=== PATIENT | female | born 1980 | race Caucasian/White ===

== ENCOUNTER 2020-02-08 12:23 | Observation (INO) | payer BC, OTHER ==
[~2020-02-08] VITALS: Ht 177 cm; Wt 115.7 kg
[2020-02-08] MEDS ORDERED: NS IV 1000 ML 1,000 ML IV SCH (12:35)
[2020-02-08] MEDS ORDERED: ONDANSETRON 4 MG/2 ML (SDV) Z0FRAN ONE (12:51)
[2020-02-08 12:56] LABS: BASOPHILS % (AUTO) 0 % (0-10); EOSINOPHILS # (AUTO) 0.2 10^3/uL (0.0-0.3); EOSINOPHILS % (AUTO) 3 % (0-10); HEMATOCRIT 43 % (35-52); HEMOGLOBIN 14.7 G/DL (11.5-16.0); LYMPHOCYTES # (AUTO) 2.6 X 10^3 (1.0-4.0); LYMPHOCYTES % (AUTO) 45 % (12-44); MEAN CORPUSCULAR HEMOGLOBIN 29 PG (25-34); MEAN CORPUSCULAR HGB CONC 34 G/DL (32-36); MEAN CORPUSCULAR VOLUME 86 FL (80-99); MEAN PLATELET VOLUME 9.3 FL (7.4-10.4); MONOCYTES # (AUTO) 0.6 X 10^3 (0.0-1.0); MONOCYTES % (AUTO) 10 % (0-12); NEUTROPHILS # (AUTO) 2.5 X 10^3 (1.8-7.8); NEUTROPHILS % (AUTO) 43 % (42-75); PLATELET COUNT 204 10^3/uL (130-400); WHITE BLOOD COUNT 5.8 10^3/uL (4.3-11.0)
[2020-02-08] MEDS ORDERED: ONDANSETRON 4 MG/2 ML (SDV) Z0FRAN IVP ONE (13:00)
[2020-02-08 13:05] LABS: ALBUMIN 4.4 GM/DL (3.2-4.5); CHLORIDE 107 MMOL/L (98-107); POTASSIUM 3.4 MMOL/L (3.6-5.0); SODIUM 138 MMOL/L (135-145)
[2020-02-08 13:06] LABS: CALCIUM 8.8 MG/DL (8.5-10.1)
[2020-02-08 13:07] LABS: GLUCOSE 105 MG/DL (70-105); TOTAL PROTEIN 7.4 GM/DL (6.4-8.2)
[2020-02-08 13:08] LABS: CARBON DIOXIDE 16 MMOL/L (21-32)
[2020-02-08 13:09] LABS: BILIRUBIN,TOTAL 0.5 MG/DL (0.1-1.0)
--- NOTE | 2020-02-08 13:10 | NUR ---
Spoke with pt'shusband regarding plan of care. Pt talked with at this time as well.
[2020-02-08 13:11] LABS: ALKALINE PHOSPHATASE 82 U/L (40-136); CREATININE SERUM 0.91 MG/DL (0.60-1.30); GFR ESTIMATED > 60
[2020-02-08 13:12] LABS: BUN/CREATININE RATIO 14
--- NOTE | 2020-02-08 13:12 | Diagnostic Imaging Report ---
PROCEDURE: CT head and CT cervical spine without contrast. TECHNIQUE: Multiple contiguous axial images were obtained through the brain and cervical spine without the use of intravenous contrast. Sagittal and coronal reformations through the cervical spine were then performed. Auto Exposure Controls were utilized during the CT exam to meet ALARA standards for radiation dose reduction. INDICATION: Unwitnessed fall. Neck pain. Scalp contusion. COMPARISON: None. FINDINGS: CT HEAD: No large acute territorial ischemia, mass, or hemorrhage. No midline shift or mass effect. The ventricles, cortical sulci, and basilar cisterns are patent and unremarkable. The calvarium is intact. The visualized paranasal sinuses are clear. CT CERVICAL SPINE: No acute fracture or dislocation is seen in the cervical spine. No focal osseous lesions. Vertebral body heights are well-maintained. The craniocervical junction is well-maintained. Mild degenerative changes are seen in the cervical spine with disc osteophyte complexes and uncovertebral arthropathy. Soft tissues of the neck are unremarkable. IMPRESSION: 1. No hemorrhage or focal intra-axial mass. No CT evidence of large acute territorial ischemia. 2. No acute fracture or dislocation in the cervical spine. Dictated by: Dictated on workstation # [id number]
[2020-02-08 13:14] LABS: ALANINE AMINOTRANSFERASE 45 U/L (0-55)
--- NOTE | 2020-02-08 13:30 | NUR ---
C-collar removed by Dr. Sevilla at this time.
[2020-02-08 13:34] LABS: TSH (THYROID ANALYZER) 1.57 UIU/ML (0.35-4.94)
[2020-02-08] MEDS ORDERED: fentaNYL INJECTION 100 MCG/2 ML AMP IVP ONE (14:00)
--- NOTE | 2020-02-08 14:41 | ED General ---
General Chief Complaint: Dizziness/Syncope Stated Complaint: GLUCOSE ISSUES Nursing Triage Note: Pt to ED via EMS. EMS reports pt had unwitnessed fall at [facility] where pt works. Pt was found on the floor between two tables. EMS reports pt was alert, however not answering questions appropriately. EMS reports BS of 79 upon arrival. EMS gave oral glucose and blood sugar was then 90. Pt keeps repeating, "I don't feel good. My legs are so heavy. My arms are heavy. I feel sick." Pt reports remembering getting dressed this morning and going to work, but pt does not remember much after that. C-collar in place upon arrival. Nursing Sepsis Screen: No Definite Risk Source of Information: Patient, EMS Exam Limitations: No Limitations History of Present Illness Date Seen by Provider: Feb 08, 2020 Time Seen by Provider: 12:26 Initial Comments This 39-year-old woman presents to the emergency room via EMS after being found on the ground between 2 tables in the cafeteria at [employer] [facility]. She has altered mental status with sluggish cognition. She answers most questions appropriately but cannot answer some questions such as the present month. She is quite anxious. She is notably tachycardic. She complains of headache. There are no obvious injuries on exam. Patient does not remember going to the cafeteria or events immediately surrounding the incident. Patient recalls having a headache over the past week. She also notes sometimes feeling ill, weak, and lightheaded when she has not eaten in a while. This is usually subsides once she eats. She d enies diabetes or other significant health problems. She denies any drug or alcohol use. A friend who was with her reports that she walked up on the patient to find her lying on the floor and convulsing. Her head was thumping on the floor according to the friend. The friend placed her hands behind the patient's head to prevent injury. Patient denies any personal or family history of seizure activity. EMS reported blood sugar was 79. They gave oral glucose which improved her blood sugar to 90. Blood sugar on arrival to the ER was 112. C-collar was applied by EMS. Patient has contusions of the right side of her tongue and complains of tongue pain. Patient's primary care provider is Marin Bañuelos in [place]. Allergies and Home Medications Allergies Coded Allergies: No Known Drug Allergies (Unverified , 02/08/20) Patient Home Medication List Home Medication List Reviewed: Yes Review of Systems Review of Systems Constitutional: no symptoms reported EENTM: see HPI Respiratory: no symptoms reported Cardiovascular: no symptoms reported Genitourinary: no symptoms reported : No Musculoskeletal: see HPI Skin: no symptoms reported Psychiatric/Neurological: See HPI Hematologic/Lymphatic: No Symptoms Reported Immunological/Allergic: no symptoms reported Past Josewoo-Ktygqb-Qhjpkq Hx Past Med/Social Hx: Reviewed Nursing Past Med/Soc Hx Patient Social History Alcohol Use: Occasionally Uses Recreational Drug Use: No Smoking Status: Current Someday Smoker 2nd Hand Smoke Exposure: Yes Recent Foreign Travel: No Contact w/Someone Who Travel: No Recent Infectious Disease Expo: No Past Medical History Surgeries: Yes (wisdom teeth) Gallbladder, Tonsillectomy Respiratory: No Cardiac: No Neurological: No : No Genitourinary: No Gastrointestinal: No Musculoskeletal: No Endocrine: No HEENT: No Cancer: No Psychosocial: No Integumentary: No Blood Disorders: No Physical Exam Vital Signs Vital Signs - First Documented 02/08/20 12:23 Temp 36.9 Pulse 109 Resp 19 B/P (MAP) 146/85 (105) Pulse Ox 94 O2 Delivery Room Air Capillary Refill : Less Than 3 Seconds Height, Weight, BMI Height: '" Weight: lbs. oz. kg; 36.00 BMI Method: General Appearance: No Apparent Distress, WD/WN HEENT: PERRL/EOMI, Normal ENT Inspection, Other (Contusions on the right side of the tongue. 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, Other (Disoriented to month, otherwise alert and oriented) Skin: Normal Color, Warm/Dry Progress/Results/Core Measures Suspected Sepsis Recent Fever Within 48 Hours: No Infection Criteria Present: None New/Unexplained Altered Menta: No Sepsis Screen: No Definite Risk SIRS Temperature: Pulse: 109 Respiratory Rate: 19 Laboratory Tests 02/08/20 12:30: White Blood Count 5.8 Blood Pressure 146 /85 Mean: 105 Laboratory Tests 02/08/20 12:30: Creatinine 0.91, Platelet Count 204, Total Bilirubin 0.5 Results/Orders Lab Results Laboratory Tests Test 02/08/20 12:30 02/08/20 12:32 02/08/20 14:22 Range/Units White Blood Count 5.8 4.3-11.0 10^3/uL Red Blood Count 5.02 4.35-5.85 10^6/uL Hemoglobin 14.7 11.5-16.0 G/DL Hematocrit 43 35-52 % Mean Corpuscular Volume 86 80-99 FL Mean Corpuscular Hemoglobin 29 25-34 PG Mean Corpuscular Hemoglobin Concent 34 32-36 G/DL Red Cell Distribution Width 13.0 10.0-14.5 % Platelet Count 204 130-400 10^3/uL Mean Platelet Volume 9.3 7.4-10.4 FL Neutrophils (%) (Auto) 43 42-75 % Lymphocytes (%) (Auto) 45 H 12-44 % Monocytes (%) (Auto) 10 0-12 % Eosinophils (%) (Auto) 3 0-10 % Basophils (%) (Auto) 0 0-10 % Neutrophils # (Auto) 2.5 1.8-7.8 X 10^3 Lymphocytes # (Auto) 2.6 1.0-4.0 X 10^3 Monocytes # (Auto) 0.6 0.0-1.0 X 10^3 Eosinophils # (Auto) 0.2 0.0-0.3 10^3/uL Basophils # (Auto) 0.0 0.0-0.1 10^3/uL Sodium Level 138 135-145 MMOL/L Potassium Level 3.4 L 3.6-5.0 MMOL/L Chloride Level 107 98-107 MMOL/L Carbon Dioxide Level 16 L 21-32 MMOL/L Anion Gap 15 H 5-14 MMOL/L Blood Urea Nitrogen 13 7-18 MG/DL Creatinine 0.91 0.60-1.30 MG/DL Estimat Glomerular Filtration Rate > 60 BUN/Creatinine Ratio 14 Glucose Level 105 70-105 MG/DL Calcium Level 8.8 8.5-10.1 MG/DL Corrected Calcium 8.5 8.5-10.1 MG/DL Magnesium Level 2.0 1.6-2.4 MG/DL Total Bilirubin 0.5 0.1-1.0 MG/DL Aspartate Amino Transf (AST/SGOT) 26 5-34 U/L Alanine Aminotransferase (ALT/SGPT) 45 0-55 U/L Alkaline Phosphatase 82 40-136 U/L Troponin I < 0.028 <0.028 NG/ML Total Protein 7.4 6.4-8.2 GM/DL Albumin 4.4 3.2-4.5 GM/DL TSH [place] Testing 1.57 0.35-4.94 UIU/ML Serum Test, Qualitative NEGATIVE NEGATIVE Serum Alcohol < 10 <10 MG/DL Glucometer 112 H 70-110 MG/DL Urine Opiates Screen NEGATIVE NEGATIVE Urine Oxycodone Screen NEGATIVE NEGATIVE Urine Methadone Screen NEGATIVE NEGATIVE Urine Propoxyphene Screen NEGATIVE NEGATIVE Urine Barbiturates Screen NEGATIVE NEGATIVE Ur Tricyclic Antidepressants Screen NEGATIVE NEGATIVE Urine Phencyclidine Screen NEGATIVE NEGATIVE Urine Amphetamines Screen NEGATIVE NEGATIVE Urine Methamphetamines Screen NEGATIVE NEGATIVE Urine Benzodiazepines Screen NEGATIVE NEGATIVE Urine Cocaine Screen NEGATIVE NEGATIVE Urine Cannabinoids Screen NEGATIVE NEGATIVE My Orders Orders - FLORA CHICAS MD Ed Iv/Invasive Line Start (02/08/20 12:35) Ns Iv 1000 Ml (Sodium Chloride 0.9%) (02/08/20 12:35) Alcohol (02/08/20 12:35) Cbc With Automated Diff (02/08/20 12:35) Comprehensive Metabolic Panel (02/08/20 12:35) Drug Screen Stat (Urine) (02/08/20 12:35) Hcg,Qualitative Serum (02/08/20 12:35) Magnesium (02/08/20 12:35) Thyroid Analyzer (02/08/20 12:35) Troponin I (02/08/20 12:35) Accucheck Stat ONCE (02/08/20 12:35) Ct Head/Cervical Spine Wo (02/08/20 12:35) Ondansetron Injection (Zofran Injectio (02/08/20 13:00) Ondansetron Injection (Zofran Injectio (02/08/20 12:51) Fentanyl Injection (Sublimaze Injection (02/08/20 14:00) Ketorolac Injection (Toradol Injection) (02/08/20 17:30) Medications Given in ED Current Medications Medications Dose Ordered Sig/Yolande Route Start Time Stop Time Status Last Admin Dose Admin Fentanyl Citrate 50 mcg ONCE ONCE IVP 02/08/20 14:00 02/08/20 14:01 DC 02/08/20 13:58 50 MCG Ketorolac Tromethamine 15 mg ONCE ONCE IVP 02/08/20 17:30 02/08/20 17:31 DC 02/08/20 18:18 15 MG Ondansetron HCl 8 mg ONCE ONCE IVP 02/08/20 13:00 02/08/20 13:01 DC 02/08/20 13:00 8 MG Vital Signs/I&O 02/08/20 12:23 Temp 36.9 Pulse 109 Resp 19 B/P (MAP) 146/85 (105) Pulse Ox 94 O2 Delivery Room Air Capillary Refill : Less Than 3 Seconds Blood Pressure Mean: 105 Point of Care Testing Finger Stick Blood Glucose: 112 Blood Glucose Action Taken: amanda Progress Note : Progress Note Labs were evaluated and were grossly unremarkable. CT of the head and cervical spine was also unremarkable. Patient's mental status gradually improved. There is concern for possible new onset seizure. There could also be concurrent concussion. I recommended admission. Patient and her desired for admission in [place] closer to home where neurology services are available. Unfortunately, both [facility] were on transfer diversion. Patient consented to admission at [facility] for observation as an alternative. She received a liter of IV fluid. Zofran was given for nausea. Fentanyl and Toradol were given for headache. Diagnostic Imaging Diagonstic Imaging: CT Plain Films/CT/US/NM/MRI: c-spine, head Comments CT head and cervical spine viewed by me. Report reviewed. See report below: NAME: NURY WHIPPLE [facility] REC#: [id number] PT STATUS: REG ER : 1980 PHYSICIAN: FLORA CHICAS MD ADMIT DATE: 02/08/20/ER Signed Date of Exam:02/08/20 CT HEAD/CERVICAL SPINE WO PROCEDURE: CT head and CT cervical spine without contrast. TECHNIQUE: Multiple contiguous axial images were obtained through the brain and cervical spine without the use of intravenous contrast. Sagittal and coronal reformations through the cervical spine were then performed. Auto Exposure Controls were utilized during the CT exam to meet ALARA standards for radiation dose reduction. INDICATION: Unwitnessed fall. Neck pain. Scalp contusion. COMPARISON: None. FINDINGS: CT HEAD: No large acute territorial ischemia, mass, or hemorrhage. No midline shift or mass effect. The ventricles, cortical sulci, and basilar cisterns are patent and unremarkable. The calvarium is intact. The visualized paranasal sinuses are clear. CT CERVICAL SPINE: No acute fracture or dislocation is seen in the cervical spine. No focal osseous lesions. Vertebral body heights are well-maintained. The craniocervical junction is well-maintained. Mild degenerative changes are seen in the cervical spine with disc osteophyte complexes and uncovertebral arthropathy. Soft tissues of the neck are unremarkable. IMPRESSION: 1. No hemorrhage or focal intra-axial mass. No CT evidence of large acute territorial ischemia. 2. No acute fracture or dislocation in the cervical spine. Dictated by: Dictated on workstation # [id number] Dict: 02/08/20 1304 Trans: 02/08/20 1326 [id number] [id number] Interpreted by: ANISH CONNELL DO Electronically signed by: ANISH CONNELL DO 02/08/20 1326 Departure Communication (Admissions) Time/Spoke to Admitting Phy: 16:45 Dr. Titus Impression Primary Impression: Observed seizure-like activity Additional Impressions: Acute headache due to traumatic injury of head Retrograde amnesia Altered mental status Qualified Codes: R41.82 - Altered mental status, unspecified Fall on same level Qualified Codes: W18.30XA - Fall on same level, unspecified, initial encounter Disposition: ADMITTED INPATIENT Condition: Stable Admissions Decision to Admit Reason: Admit from ER (General) Decision to Admit/Date: Feb 08, 2020 Time/Decision to Admit Time: 14:30 FLORA CHICAS MD Feb 08, 2020 14:41
[2020-02-08 14:50] LABS: AMPHETAMINE SCREEN, URINE NEGATIVE (NEGATIVE); BARBITURATE SCREEN URINE NEGATIVE (NEGATIVE); BENZODIAZEPINES SCREEN URINE NEGATIVE (NEGATIVE); CANNABINOID SCREEN, URINE NEGATIVE (NEGATIVE); COCAINE SCREEN URINE NEGATIVE (NEGATIVE); METHADONE STAT NEGATIVE (NEGATIVE); METHAMPHETAMINE SCREEN URINE S NEGATIVE (NEGATIVE); OPIATE SCREEN URINE NEGATIVE (NEGATIVE); OXYCODONE STAT NEGATIVE (NEGATIVE); PROPOXYPHENE STAT NEGATIVE (NEGATIVE); TRICYCLIC ANTIDEPRESSANTS SCRE NEGATIVE (NEGATIVE)
--- NOTE | 2020-02-08 15:09 | NUR ---
report given to Aneudy to assume care of pt at this time.
--- NOTE | 2020-02-08 15:16 | NUR ---
Mirna ceja in ED - 02/08/20 at 1521 by DANIELLE Recieved report from MARINO Rendon to assume care of pt at this time.
[2020-02-08] MEDS ORDERED: KETOROLAC 30 MG/ML VIAL IVP ONE (17:30)
--- NOTE | 2020-02-08 18:30 | NUR ---
NURY WHIPPLE admitted to room 414-1, with an admitting diagnosis of Seizures, on 02/08/20 from ED via wheelchair , accompanied by staff.NURY WHIPPLE introduced to surroundings, call light, bed controls, phone, TV, temperature control, lights, meal times, smoking policy, visitor policy, side rail policy, bathrooms and showers. Patient Rights given to patient in the handbook. NURY WHIPPLE verbalizes understanding that [facility] is not responsible for the loss or damage to any personal effects or valuables that are kept in the patients posession during their hospitalization. NURY WHIPPLE verbalizes understanding of Interdisciplinary Patient Education. Patient and/or family were informed about the [facility] and its purpose.
[2020-02-08] MEDS ORDERED: LORazepam INJ 2 MG/ML (ATIVAN) VIAL IV PRN (18:45)
[2020-02-08] MEDS ORDERED: ACETAMINOPHEN 500 MG TAB (TYLENOL) PO PRN (18:45)
[2020-02-08] MEDS ORDERED: IBUPROFEN 600 MG (MOTRIN) TAB PO PRN (18:45)
[2020-02-08] MEDS ORDERED: CATHETER FLUSH 10 ML SYR IV PRN (18:45)
[2020-02-08 19:08] VITALS: BP 130/82
[2020-02-08] MEDS ORDERED: CATHETER FLUSH 10 ML SYR IV SCH (22:00)
[2020-02-10] MEDS ORDERED: CETI10TA21 PO (08:30)
[2020-02-10] MEDS ORDERED: IBUP-2185 PO (08:30)
[2020-02-10] MEDS ORDERED: NAPR220T66 PO (08:30)
--- NOTE | 2020-02-10 08:31 | NUR ---
SPOKE WITH THE PT TO COMPLETE THE MED REC- PT DENIES TAKING ANY PRESCRIPTION MEDICATION OTC MEDS (ALL PRN): ALEVE IBUPROFEN ZYRTEC
--- NOTE | 2020-02-10 09:15 | Discharge Summary ---
Discharge Summary Hospital Course Was the Problem List Reviewed?: Yes Problems/Dx: (1) Syncope Status: Acute Qualifiers: Hospital Course Date of Admission: Feb 08, 2020 at 18:23 Admission Diagnosis : seizure-like activity Family Physician/Provider: Date of Discharge: 02/10/20 Discharge Diagnosis: syncope, seizure-like activity Hospital Course: Maryuri Birmingham is a 39-year-old female who presented after a syncopal episode with seizure-like activity. She was at [facility] in the cafeteria when she had a syncopal episode. She reports feeling a bit off before this happened. She had a large sugary coffee drink earlier that morning. She reports having issues with low blood sugars in the past. A friend found her convulsing on the floor. EMS was called and her blood sugar was in the 70s at that time. She was given oral glucose. She slowly improved. A CT scan did not show any abnormalities. Her labs did not reveal a source for her presentation. She has no history of seizures. She was monitored and had no evidence of hypoglycemia. She had no further syncopal or presyncopal episodes. She was instructed to follow up with her primary care physician. She was also instructed to follow up with a neurologist. Labs and Pending Lab Test: Home Meds Active Reported Zyrtec (Cetirizine HCl) 10 Mg Tablet 10 Mg PO DAILY Aleve (Naproxen Sodium) 220 Mg Tablet 220 Mg PO Q8H PRN Ibuprofen 200 Mg Capsule 200-400 Mg PO Q8H PRN Assessment/Pt Instructions take medications as prescribed. Avoid the sugary drinks and other large amounts of simple sugars. Follow-up with a neurologist. Follow-up with your primary care physician. Discharge Planning: <30 minutes discharge planning Discharge Instructions Discharge Diet: No Restrictions Activity as Tolerated: Yes Discharge Physical Examination Vital Signs Vital Signs Date Time Temp Pulse Resp B/P (MAP) Pulse Ox O2 Delivery O2 Flow Rate FiO2 02/08/20 19:45 97 Room Air 02/08/20 19:38 55 02/08/20 19:08 36.3 18 130/82 (98) General Appearance: No Apparent Distress, Obese HEENT: PERRL/EOMI, Pharynx Normal Respiratory: Lungs Clear, Normal Breath Sounds, No Respiratory Distress Cardiovascular: Regular Rate, Rhythm, No Edema, No Murmur Gastrointestinal: Normal Bowel Sounds, Non Tender, Soft Extremity: Normal Inspection, Non Tender, No Pedal Edema Skin: Normal Color, Warm/Dry Neurologic/Psychiatric: Alert, Oriented x3, No Motor/Sensory Deficits, Normal Mood/Affect Allergies: Coded Allergies: No Known Drug Allergies (Unverified , 02/08/20) Discharge Summary Date of Admission Feb 08, 2020 at 18:23 Date of Discharge Discharge Date: Feb 09, 2020 Discharge Time: 13:00 Admission Diagnosis syncope Discharge Diagnosis (1) Syncope Status: Acute Qualifiers: (2) Witnessed seizure-like activity Status: Acute Clinical Quality Measures DVT/VTE Risk/Contraindication: Risk Factor Score Per Nursin RFS Level Per Nursing on Admit: 4+=Very High PRITESH COBURN MD Feb 10, 2020 09:15
== END 2020-02-10 09:51 | disposition home or self-care (01) ==
LOC: ER 12:26 → 4TH 18:23 → UNDODISOB 02-10 09:51
PROVIDERS: ADMIT Internal Medicine; ATTEND Internal Medicine
DX: R55 Syncope and collapse (principal); R56.9 Unspecified convulsions; S00.03XA Contusion of scalp, initial encounter; S00.532A Contusion of oral cavity, initial encounter; R41.2 Retrograde amnesia; F17.200 Nicotine dependence, unspecified, uncomplicated; Z90.89 Acquired absence of other organs; W18.30XA Fall on same level, unspecified, initial encounter; Y92.214 College as the place of occurrence of the external cause
CPT/HCPCS: 70450; 72125; 80053; 80306; 82962 ×2; 83735; 84443; 84484; 84703; 85025; 93005; 96361; 96374; 96375; 99284; G0378; G0480; 36415; 80320